=== PATIENT | female | born 1960 | race Caucasian/White ===

== ENCOUNTER → 2018-04-08 16:35 | Outpatient (CLI) | payer OTHER ==
[2014-02-06 06:37] VITALS: BMI 23.0
[~2018-04-08 16:35] MED LIST: AMBIEN5 MG PO; ASACOL400 MG PO; BACTRIM 400-801 TAB PO; CIPRO500 MG PO; COLACE100 MG PO; HYDROCODON-ACE1 EAC7 PO; VALIUM5 MG PO
== END | disposition home or self-care (01) ==
LOC: D.MAMMO 13:15
DX: Z12.31 Encounter for screening mammogram for malignant neoplasm of breast (principal)

== ENCOUNTER 2019-04-01 06:40 | Day surgery (SDC) | payer OTHER ==
[~2019-04-01] VITALS: Ht 157.5 cm; Wt 60.8 kg
[2019-04-01 07:09] LABS: BASOPHILS 0.7 % (0-2); EOSINOPHILS 3.9 % (0-7); HEMATOCRIT 41.9 % (36.0-48.0); HEMOGLOBIN 13.7 g/dL (12-16); IMMATURE GRANULOCYTES 0.2 % (0-5); LYMPHOCYTES 29.8 % (15-50); MCH 28.5 pg (26.0-34.0); MCHC 32.7 g/dL (31.0-37.0); MCV 87.3 fL (80.0-100.0); MEAN PLATELET VOLUME 9.3 fL (7.4-10.4); NEUTROPHILS 56.4 % (40-80); PLATELET COUNT 341 10x3/uL (130-400); RDW 13.3 % (11.5-14.5); WBC 5.6 10x3/uL (4.8-10.8)
[2019-04-01 07:17] LABS: CALC OSMOLALITY 275 mosm/kg (275-300); CALCIUM 9.1 mg/dL (8.5-10.1); CARBON DIOXIDE 26.9 mmol/L (21.0-32.0); CHLORIDE - SERUM 104 mmol/L (98-107); CREATININE - SERUM 0.5 mg/dL (0.6-1.3); GLUCOSE 83 mg/dL (74-106); POTASSIUM - SERUM 4.2 mmol/L (3.5-5.1); SODIUM 139 mmol/L (136-145); UREA NITROGEN 11 mg/dL (7-18); eGFR NON AFRICAN AMERICAN > 90 mL/min (90-120)
[2019-04-01] MEDS ORDERED: CANASA1000 MG RC (08:34)
[2019-04-01 08:35] VITALS: BP 131/75; Ht 157.5 cm; Wt 60.8 kg
[2019-04-01] MEDS ORDERED: HYDROCODON-ACE1 EA10 PO (10:32)
--- NOTE | 2019-04-01 11:03 | NUR ---
MEETS ANESTHESIA DISCHARGE CRITHERIA
--- NOTE | 2019-04-07 13:49 | OP ---
PATIENT NAME: CALI KAM MEDICAL RECORD: [id number] :64 LOCATION:[facility] ADMISSION DATE: SURGEON: SAL LOVETT MD DATE OF OPERATION: 04/01/2019 PREOPERATIVE DIAGNOSES: 1. Gallstones. 2. Ventral hernia. POSTOPERATIVE DIAGNOSES: 1. Gallstones. 2. Ventral hernia. PROCEDURES: 1. Laparoscopic cholecystectomy. 2. Ventral hernia repair without mesh. SURGEON: Sal Lovett MD REPORT OF PROCEDURE: The patient's abdomen was prepped and draped in sterile fashion. A semicircular incision was made on the inferior aspect of the umbilicus. Electrocautery was used to dissect through the subcutaneous tissues. We were able to elevate the umbilicus and just above it. We found a hernia sac. This hernia sac was excised down to the fascial edges revealing a 1.5 cm wide hernia defect. The patient also had a tiny umbilical defect with some fatty tissue extending through it. We placed 0 Vicryls on the fascia of the hernia bilaterally and inserted the Christine trocar through this into the abdominal cavity. After insufflation was obtained, a 5-mm trocar was placed in the epigastrium and 2 more 5-mm trocars were placed in the right subcostal region. The gallbladder was grasped and elevated. There was no sign of any inflammatory changes. The cystic artery and cystic duct were dissected free and these were clipped proximally and distally and brought ligated in standard fashion. The gallbladder was taken off the liver bed using electrocautery and placed into the right upper quadrant. Any bleeding from the liver bed was then treated with electrocautery. At this point, the ports and insufflation were then removed and the gallbladder was taken out through the umbilicus. We cleared off the fascia and freed up the little fatty tissue that was through the umbilical hernia. This umbilical defect with just a couple of millimeters in greatest diameter. We went ahead and closed up the defects with interrupted 0 Prolenes times 5 transversely. The wound was then irrigated out with normal saline. The umbilicus was tacked down with an interrupted 3-0 Vicryl and the subcutaneous tissues were reapproximated with interrupted 3-0 Vicryl. The skin was closed with running subcutaneous 5-0 Monocryl and dressed appropriately. A total of 10 mL of 0.25% Marcaine with epinephrine was infused into the surrounding tissues. COMPLICATIONS: None. CONDITION: Stable. ANESTHESIA: General endotracheal and local. BLOOD LOSS: Minimal. TRANSINT:[id number] Voice Confirmation ID: [id number] DOCUMENT ID: [id number] OPERATIVE REPORT [id number] CALI KAM CHRISTIAN MD at 1349 CC: JOSEP [place] [id number] DICTATION DATE: 04/01/19 1037 [employer] SYSTEM[employer] TECHNICIAN: 04/01/19 1143 [facility] [place] 04/01/19 [id number] [place] [address]
== END 2019-04-01 12:45 | disposition home or self-care (01) ==
LOC: D.OPS 06:40 → D.PAN 09:15 → D.OPS 10:00
PROVIDERS: ATTEND Surgery
DX: K80.80 Other cholelithiasis without obstruction (principal); K43.9 Ventral hernia without obstruction or gangrene